=== PATIENT | female | born 1955 | race Caucasian/White ===

== ENCOUNTER 2023-01-24 15:51 | Emergency (ER) | payer MEDICARE, BC ==
[~2023-01-24] VITALS: Ht 170.2 cm; Wt 62.1 kg
[2023-01-24] MEDS ORDERED: [UNRECOGNIZED DRUG - OTHER] PO (17:13)
[2023-01-24] MEDS ORDERED: CAPECITABINE150 MG PO (17:14)
[2023-01-24] MEDS ORDERED: DULOXETINE HCL40 M1 PO (17:15)
[2023-01-24] MEDS ORDERED: HERCEPTIN150 MG IV (17:15)
[2023-01-24 19:24] VITALS: BP 163/70
[2023-01-24] MEDS ORDERED: HYDROCODONE-AC1 EA10 PO (21:17)
== END 2023-01-24 21:30 | disposition home or self-care (01) ==
LOC: ER 15:51
DX: S59.201A Unspecified physeal fracture of lower end of radius, right arm, initial encounter for closed fracture (principal); S52.611A Displaced fracture of right ulna styloid process, initial encounter for closed fracture; W10.9XXA Fall (on) (from) unspecified stairs and steps, initial encounter; Z88.6 Allergy status to analgesic agent; Z88.8 Allergy status to other drugs, medicaments and biological substances; Z79.899 Other long term (current) drug therapy
CPT/HCPCS: 25605; 73110; 96374-59; 99152; 99283-25; A9270; J1885; J2704